=== PATIENT | female | born 1955 | race Caucasian/White ===

== ENCOUNTER → 2020-07-31 | Outpatient (CLI) | payer MEDICARE ==
[~2020-07-31] MED LIST: ABILIFY10 MG PO; BACTROBAN OINT22 GM EXT; BUMETANIDE1 MG PO; BUSPIRONE HCL10 MG PO; CLEOCIN HCL300 MG PO; CRESTOR20 MG PO; CYCLOBENZAPRINE10 MG PO; ESCITALOPRAM OX20 MG PO; GABAPENTIN800 MG PO; IBUPROFEN PO; LEVOTHYROXINE100 MCG PO; METOPROLOL SUCC50 MG PO; NORCO 5-325 TA1 EACH PO; OXYBUTYNIN CHLOR5 M1 PO; ROPINIROLE HCL1 MG PO
== END ==
LOC: HEART 5 07-30 14:00 → ECHO 12:58 → HEART 5 08-08 14:30
DX: R00.2 Palpitations (principal); R06.02 Shortness of breath; I08.1 Rheumatic disorders of both mitral and tricuspid valves; I27.20 Pulmonary hypertension, unspecified
CPT/HCPCS: ECHO; 93306

== ENCOUNTER → 2020-10-22 | Outpatient (CLI) | payer MEDICARE | LOC: RAD 09:12 | DX: R06.02 Shortness of breath (principal) | CPT/HCPCS: 71046 ==

== ENCOUNTER → 2020-10-22 | Outpatient (CLI) | payer MEDICARE | LOC: EXRD 15:02 | DX: R22.42 Localized swelling, mass and lump, left lower limb (principal) | CPT/HCPCS: 93970 ==